=== PATIENT | male | born 1985 | race Caucasian/White ===

== ENCOUNTER → 2023-05-14 | Outpatient (CLI) | payer BC ==
[2023-05-14 14:38] LABS: Source, Urine Clean Catch
[2023-05-14 15:11] LABS: Bilirubin, Urine Neg (Neg); Blood, Urine Neg (Neg); Color, Urine Yellow (P-Yellow); Glucose Qualitative, Urine Neg (Neg); Ketones, Urine Neg (Neg); Leukocyte Esterase, Urine Neg (Neg); Nitrite, Urine Neg (Neg); Protein, Urine Neg (Neg); Specific Gravity, Urine 1.015 (1.003-1.022); Urobilinogen, Urine NORM (Normal)
[2023-05-14 15:24] LABS: Amorphous Heavy (0-Heavy); Appearance, Urine Hazy (Clear); Bacteria Rare /hpf; Mucus Light (0-Heavy); Red Blood Cells, Urine Not Seen /hpf (0-2); Squamous Epithelial Cells Few /hpf (Few); White Blood Cells, Urine Not Seen /hpf (0-5)
== END | disposition home or self-care (01) ==
LOC: LAB 14:36 → LAB SHORT 14:36
PROVIDERS: Internal Medicine
DX: R30.0 Dysuria (principal)
CPT/HCPCS: 81001

== ENCOUNTER → 2023-07-23 | Outpatient (CLI) | payer BC ==
[2023-07-23 17:37] LABS: BASOPHILS ABSOLUTE AUTO 0.03 K/mm3 (0.00-0.23); BASOPHILS PERCENT AUTO 0 % (0-2); EOSINOPHILS ABSOLUTE AUTO 0.27 K/mm3 (0.00-0.68); EOSINOPHILS PERCENT AUTO 2 % (0-6); Hematocrit 44.1 % (37.0-53.0); Hemoglobin 14.8 g/dL (13.5-17.5); IMMATURE GRAN ABSOLUTE AUTO 0.03 K/mm3 (0.00-0.10); IMMATURE GRAN PERCENT AUTO 0 % (0-1); LYMPHOCYTES ABSOLUTE AUTO 2.36 K/mm3 (0.84-5.20); LYMPHOCYTES PERCENT AUTO 17 % (21-46); MONOCYTES ABSOLUTE AUTO 0.92 K/mm3 (0.16-1.47); MONOCYTES PERCENT AUTO 7 % (4-13); Mean Corpuscular HGB 29.5 pg (26.0-34.0); Mean Corpuscular HGB Conc 33.6 g/dL (31.5-36.5); Mean Corpuscular Volume 88 fL (80-100); Mean Platelet Volume 9.7 fL (9.1-12.4); NEUTROPHILS ABSOLUTE AUTO 9.96 K/mm3 (1.96-9.15); NEUTROPHILS PERCENT AUTO 73 % (41-73); Platelet Count 291 K/mm3 (150-400); RDW Coefficient Variation 12.7 % (11.7-14.2); RDW Standard Deviation 40.6 fL (35.1-46.3); Red Blood Cell Count 5.02 M/mm3 (4.30-5.90); White Blood Cell Count 13.57 K/mm3 (4.00-11.30)
[2023-07-23 17:54] LABS: Albumin, Blood 4.2 g/dL (3.4-5.0); Albumin/Globulin Ratio 1.2 (0.8-1.8); Bilirubin, Total 0.3 mg/dL (0.1-1.0); Bun/Creatinine Ratio 11.3 (12.0-20.0); Calcium, Blood 9.4 mg/dL (8.5-10.1); Creatinine, Blood 0.97 mg/dL (0.60-1.20); Globulin, Blood 3.6 g/dL (2.2-4.0); Potassium, Blood 3.8 mmol/L (3.5-5.5); Total Protein, Blood 7.8 g/dL (6.4-8.2)
[2023-07-23 23:45] LABS: Adenovirus F 40/41 Not Detected (NOT DETECT); Astrovirus Not Detected (NOT DETECT); Campylobacter Sp Not Detected (NOT DETECT); Cryptosporidium Not Detected (NOT DETECT); Cyclospora Cayetanensis Not Detected (NOT DETECT); E. Coli O157 Not Detected (NOT DETECT); Entamoeba Histolytica Not Detected (NOT DETECT); Enteroaggregative E. coli-EAEC Not Detected (NOT DETECT); Enteropathogenic E. coli-EPEC Not Detected (NOT DETECT); Enterotoxigenic E. coli-ETEC Not Detected (NOT DETECT); Giardia Lamblia Not Detected (NOT DETECT); Norovirus GI/GII Not Detected (NOT DETECT); Plesiomonas Shigelloides Not Detected (NOT DETECT); Rotavirus A Not Detected (NOT DETECT); Salmonella Sp Not Detected (NOT DETECT); Sapovirus Not Detected (NOT DETECT); Shiga Toxin-prod E. coli-STEC Not Detected (NOT DETECT); Shigella/Enteroin E. coli-EIEC Not Detected (NOT DETECT); Vibrio Cholerae Not Detected (NOT DETECT); Vibrio Sp Not Detected (NOT DETECT); Yersinia Enterocolitica Not Detected (NOT DETECT)
== END ==
LOC: LAB 17:33 → LAB SHORT 17:33
PROVIDERS: Physician Assistant
DX: R19.7 Diarrhea, unspecified (principal); N23 Unspecified renal colic
CPT/HCPCS: 80053; 85025; 87086; 87324; 87507

== ENCOUNTER 2025-03-19 17:53 | Observation (INO) | payer OTHER ==
[~2025-03-19] VITALS: Ht 180.3 cm; Wt 70.5 kg
[~2025-03-19 17:53] MED LIST: DECADRON4 M1 PO; ONDA4ODT MM
[2025-03-19 18:58] LABS: U Amphetamine Screen Not Detected; U Barbiturate Screen Not Detected; U Benzodiazapine Screen Not Detected; U Buprenorphine Screen Not Detected; U Cannabinoids Screen DETECTED; U Cocaine Screen Not Detected; U Methadone Screen Not Detected; U Methamphetamine Screen Not Detected; U Opiates Screen Not Detected; U Oxycodone Screen Not Detected; U Phencyclidine Screen Not Detected
[2025-03-19 19:11] LABS: Ethanol (Alcohol), Blood, Med <3 mg/dL; Salicylate 2.6 mg/dL (2.8-20.0)
[2025-03-19 19:18] LABS: Acetaminophen, Random <2.0 ug/mL (10.0-30.0)
[2025-03-19 19:37] LABS: BASOPHILS ABSOLUTE AUTO 0.05 K/mm3 (0.00-0.23); BASOPHILS PERCENT AUTO 1 % (0-2); EOSINOPHILS ABSOLUTE AUTO 0.11 K/mm3 (0.00-0.68); EOSINOPHILS PERCENT AUTO 1 % (0-6); Hematocrit 47.1 % (37.0-53.0); Hemoglobin 16.0 g/dL (13.5-17.5); IMMATURE GRAN ABSOLUTE AUTO 0.05 K/mm3 (0.00-0.10); IMMATURE GRAN PERCENT AUTO 1 % (0-1); LYMPHOCYTES ABSOLUTE AUTO 1.60 K/mm3 (0.84-5.20); LYMPHOCYTES PERCENT AUTO 15 % (21-46); MONOCYTES ABSOLUTE AUTO 0.85 K/mm3 (0.16-1.47); MONOCYTES PERCENT AUTO 8 % (4-13); Mean Corpuscular HGB Conc 34.0 g/dL (31.5-36.5); Mean Corpuscular Volume 92 fL (80-100); NEUTROPHILS ABSOLUTE AUTO 7.93 K/mm3 (1.96-9.15); NEUTROPHILS PERCENT AUTO 75 % (41-73); NRBC ABSOLUTE 0.00 K/mm3 (0.00-0.02); NRBC Auto 0.0 /100 WBC (0.0-0.2); Platelet Count 325 K/mm3 (150-400); RDW Coefficient Variation 12.6 % (11.7-14.2); RDW Standard Deviation 42.9 fL (35.1-46.3)
[2025-03-19 19:58] LABS: Alanine Aminotransfer (ALT/SGP 27.0 U/L (12-78); Albumin, Blood 4.3 g/dL (3.4-5.0); Albumin/Globulin Ratio 1.2 (0.8-1.8); Anion Gap 8.0 mmol/L (3-11); Aspartate Aminotrans (AST/SGOT 15.0 U/L (12-37); Bilirubin, Total 0.4 mg/dL (0.1-1.0); Blood Urea Nitrogen 13.0 mg/dL (8-24); CO2, Blood 30.0 mmol/L (21-32); Calcium, Blood 9.9 mg/dL (8.5-10.1); Chloride, Blood 105.0 mmol/L (98-108); Creatinine, Blood 0.83 mg/dL (0.60-1.20); Globulin, Blood 3.5 g/dL (2.2-4.0); Glucose, Blood 104.0 mg/dL (70-99); Potassium, Blood 4.0 mmol/L (3.5-5.5); Sodium, Blood 139.0 mmol/L (136-145); Total Protein, Blood 7.8 g/dL (6.4-8.2)
[2025-03-19] MEDS ORDERED: Dexamethasone Sod Phos 10 MG/ML 1ML VIAL IV ONE (21:30)
[2025-03-19] MEDS ORDERED: Ketorolac Tromethamine 15mg Vial IV ONE (21:45)
[2025-03-19] MEDS ORDERED: Ondansetron HCl 2 MG / ML 2ML Vial IV PRN (22:45)
[2025-03-19] MEDS ORDERED: FLU VACC TS2025-26(6MOS UP)/PF 45 MCG/0.5 ML SYRINGE IM SCH (22:45)
[2025-03-19] MEDS ORDERED: Ketorolac Tromethamine 15mg Vial IV PRN (23:00)
[2025-03-20] MEDS ORDERED: DULO60 PO (00:38)
[2025-03-20 02:30] VITALS: BP 126/76
[2025-03-20] MEDS ORDERED: Morphine Sulfate 4 MG/1 ML Injection IV PRN (02:50)
[2025-03-20] MEDS ORDERED: Naloxone HCl 0.4MG / ML 1ML Vial IV PRN (02:50)
[2025-03-20 04:24] LABS: BASOPHILS ABSOLUTE AUTO 0.02 K/mm3 (0.00-0.23); BASOPHILS PERCENT AUTO 0 % (0-2); EOSINOPHILS ABSOLUTE AUTO 0.01 K/mm3 (0.00-0.68); EOSINOPHILS PERCENT AUTO 0 % (0-6); Hematocrit 43.5 % (37.0-53.0); Hemoglobin 14.6 g/dL (13.5-17.5); IMMATURE GRAN ABSOLUTE AUTO 0.03 K/mm3 (0.00-0.10); IMMATURE GRAN PERCENT AUTO 0 % (0-1); LYMPHOCYTES ABSOLUTE AUTO 0.61 K/mm3 (0.84-5.20); LYMPHOCYTES PERCENT AUTO 6 % (21-46); MONOCYTES ABSOLUTE AUTO 0.08 K/mm3 (0.16-1.47); MONOCYTES PERCENT AUTO 1 % (4-13); Mean Corpuscular HGB Conc 33.6 g/dL (31.5-36.5); Mean Corpuscular Volume 93 fL (80-100); NEUTROPHILS ABSOLUTE AUTO 8.89 K/mm3 (1.96-9.15); NEUTROPHILS PERCENT AUTO 92 % (41-73); NRBC ABSOLUTE 0.00 K/mm3 (0.00-0.02); NRBC Auto 0.0 /100 WBC (0.0-0.2); Platelet Count 272 K/mm3 (150-400); RDW Coefficient Variation 12.7 % (11.7-14.2); RDW Standard Deviation 43.5 fL (35.1-46.3)
[2025-03-20 04:48] LABS: Alanine Aminotransfer (ALT/SGP 24.0 U/L (12-78); Albumin, Blood 3.8 g/dL (3.4-5.0); Albumin/Globulin Ratio 1.2 (0.8-1.8); Anion Gap 7.0 mmol/L (3-11); Aspartate Aminotrans (AST/SGOT 15.0 U/L (12-37); Bilirubin, Total 0.5 mg/dL (0.1-1.0); Blood Urea Nitrogen 13.0 mg/dL (8-24); CO2, Blood 26.0 mmol/L (21-32); Calcium, Blood 9.2 mg/dL (8.5-10.1); Chloride, Blood 108.0 mmol/L (98-108); Creatinine, Blood 0.89 mg/dL (0.60-1.20); Globulin, Blood 3.1 g/dL (2.2-4.0); Glucose, Blood 164.0 mg/dL (70-99); Potassium, Blood 3.7 mmol/L (3.5-5.5); Sodium, Blood 137.0 mmol/L (136-145); Total Protein, Blood 6.9 g/dL (6.4-8.2)
--- NOTE | 2025-03-20 05:02 | NUR ---
patient admitted to room 224 from ER via stretcher, accompanied by sitter and finnish rubber, lungs clear, pain when swallowing, tordol given in ER with little help with pain, Notified docter and new orders for morphine recieved, void with moderate difficulty while door is open, patient is currently living in van at [facility], has a history of MS and depression, attempted suicide due to life conditions, regrets attempts and no longer has any suicidal ideations, states he scare himself out of that, sitter remains at bedside, patient sleeping after morphine, call light on short cord, bed in low and locked position, will continue to monitor closely.
--- NOTE | 2025-03-20 08:16 | NUR ---
patient denies suicidal thoughts. 1:[address] assessed for pain.
[2025-03-20 08:53] VITALS: BP 125/76
[2025-03-20] MEDS ORDERED: Dexamethasone Sod Phos 10 MG/ML 1ML VIAL IV SCH (09:00)
[2025-03-20 12:49] VITALS: BP 138/76
--- NOTE | 2025-03-20 15:29 | NUR ---
PATIENT DISCHARGED HOME. DISCHARGE PAPERWORK GONE OVER WITH THE PATIENT. ALL OF HIS BELONGINGS WERE GIVEN BACK TO HIM. PATIENT PUSHED OUT TO THE PATIENT ENTERANCE VIA WHEELCHAIR.
== END 2025-03-20 14:50 | disposition home or self-care (01) ==
LOC: ER 17:53 → SURS 17:54
PROVIDERS: Emergency Medicine; Student in an Organized Health Care Education/Training Program; ADMIT Surgery
DX: S12.8XXA Fracture of other parts of neck, initial encounter (principal); S10.0XXA Contusion of throat, initial encounter; G35.D Multiple sclerosis, unspecified; F32.A Depression, unspecified; F43.23 Adjustment disorder with mixed anxiety and depressed mood; Z59.02 Unsheltered homelessness; Z79.899 Other long term (current) drug therapy; Z88.2 Allergy status to sulfonamides; X83.8XXA Intentional self-harm by other specified means, initial encounter
CPT/HCPCS: 36415; 70490; 80053; 80320; 85025; 96374; 96375; 96376; 99285-25; G0378; G0480; J1100; J1885; J2270